=== PATIENT | female | born 1950 | race Caucasian/White ===

== ENCOUNTER 2021-03-11 08:59 | Outpatient (CLI) | payer OTHER | END 2021-03-11 20:37 | disposition home or self-care (01) | LOC: SMA 08:59 | PROVIDERS: ATTEND Specialist | DX: Z12.31 Encounter for screening mammogram for malignant neoplasm of breast (principal); N64.89 Other specified disorders of breast | CPT/HCPCS: 77067 ==

== ENCOUNTER 2022-05-16 09:14 | Outpatient (CLI) | payer OTHER, MEDICARE | END 2022-05-16 18:11 | disposition home or self-care (01) | LOC: SMA 09:14 | PROVIDERS: ATTEND Specialist | DX: Z12.31 Encounter for screening mammogram for malignant neoplasm of breast (principal) | CPT/HCPCS: 77067 ==

== ENCOUNTER 2023-05-22 08:49 | Outpatient (CLI) | payer OTHER, MEDICARE | END 2023-05-22 20:25 | disposition home or self-care (01) | LOC: SMA 08:49 | DX: Z12.31 Encounter for screening mammogram for malignant neoplasm of breast (principal) | CPT/HCPCS: 77067 ==